=== PATIENT | female | born 1995 | race Two or more races ===

== ENCOUNTER 2023-11-24 13:53 | Emergency (ER) | payer OTHER ==
[~2023-11-24] VITALS: Ht 154.9 cm; Wt 58.5 kg
== END 2023-11-24 15:59 | disposition home or self-care (01) ==
LOC: ER 13:54
DX: R53.81 Other malaise (principal); J06.9 Acute upper respiratory infection, unspecified; Z20.822 Contact with and (suspected) exposure to COVID-19